=== PATIENT | female | born 1950 | race Caucasian/White ===

== ENCOUNTER → 2019-05-28 16:21 | Outpatient (ROUT) | payer MEDICARE, BC, SELFPAY | PROVIDERS: Visit Provider Nurse Practitioner Family | DX: B37.89 Other sites of candidiasis (principal) | CPT/HCPCS: 87070; 87075; 87077; 87147; 87186; 87205 ==

== ENCOUNTER → 2019-12-07 14:31 | Outpatient (CLI) | payer MEDICARE, BC, SELFPAY ==
[2019-12-07 15:09] LABS: Add Manual Diff / Slide Review NO; Basophils Absolute Auto 0 /uL (0-100); Basophils Percent Auto 0.6 % (0-2); Eosinophils Absolute Auto 200 /uL (0-450); Eosinophils Percent Auto 3.8 % (2-4); Hematocrit 37.9 % (36-46); Hemoglobin 12.9 g/dL (12.0-16.0); Lymphocytes Absolute Auto 1600 /uL (1100-4500); Lymphocytes Percent Auto 25.8 % (25-40); Mean Corpuscular HGB Conc 34.1 % (30-36); Mean Corpuscular Hemoglobin 30.6 PG (26-34); Mean Corpuscular Volume 89.9 fL (80-100); Monocytes Absolute Auto 700 /uL (0-900); Monocytes Percent Auto 10.4 % (3-14); Neutrophils Absolute Auto 3700 /uL (1500-7000); Neutrophils Percent Auto 59.4 % (50-75); Platelet Count 393 X10^3/uL (150-400); Red Blood Cell Count 4.22 X10^6/uL (4.0-5.2); Red Cell Distribution Width 13.7 % (11.6-14.8); White Blood Cell Count 6.3 X10^3/uL (4.5-11.0)
[2019-12-07 15:32] LABS: Alanine Aminotransferase 22 IU/L (<35); Albumin 4.4 g/dL (3.5-5.0); Albumin Globulin Ratio 1.4 (1.0-2.8); Alkaline Phosphatase 106 U/L (38-126); Aspartate Aminotransferase 32 IU/L (14-36); BUN Creatinine Ratio 19.2 (6-22); Bilirubin Total 0.4 mg/dL (0.2-1.3); Blood Urea Nitrogen 25 mg/dL (7-17); Calcium 9.3 mg/dL (8.4-10.2); Carbon Dioxide 32 mmol/L (22-32); Chloride 99 mmol/L (98-107); Estimated Glomerular Filt Rate 40.9 mL/min (>60); Globulin 3.1 g/dL (1.7-4.1); Glucose 102 mg/dL (80-110); HEMOLYSIS < 15 (0-50); Potassium 3.3 mmol/L (3.4-5.1); Sodium 140 mmol/L (137-145); Total Protein 7.5 g/dL (6.3-8.2)
[2019-12-07 15:36] LABS: C-Reactive Protein Quant < 0.5 mg/dL (<1.0); Rheumatoid Factor < 8.6 IU/mL (<12.0)
[2019-12-07 15:51] LABS: Erythrocyte Sedimentation Rate 9 MM/HR (0-20)
[2019-12-07 16:09] LABS: Appearance Urine UA CLEAR; Bilirubin Urine UA NEGATIVE (NEGATIVE); Color Urine UA YELLOW; Glucose Urine UA NEGATIVE (Negative); Ketones Urine UA NEGATIVE (NEGATIVE); Leukocyte Esterase Urine UA NEGATIVE (NEGATIVE); Nitrite Urine UA NEGATIVE (Negative); Occult Blood Urine UA NEGATIVE (Negative); Protein Urine UA NEGATIVE (Negative); Specific Gravity Urine UA 1.015 (1.000-1.035); Urobilinogen Urine UA 0.2 E.U./dL (0.2)
[2019-12-07 16:51] LABS: Bacteria Urine Many (>30); Culture Indicated Urine Specimen Cultured; RBC Urine 0-1/HPF (0-5/HPF); Squamous Epithelial Cell Urine 0-1 /HPF (0-5/HPF); WBC Urine 5-10/HPF (0-5/HPF)
[2019-12-10 16:15] LABS: ANA Screen, IFA POSITIVE (NEGATIVE)
== END ==
PROVIDERS: PCP Internal Medicine; Referring Provider Internal Medicine; Visit Provider Internal Medicine
DX: R21 Rash and other nonspecific skin eruption (principal); M25.40 Effusion, unspecified joint
CPT/HCPCS: 36415; 80053; 81001; 85025; 85651; 86038; 86140; 86430; 87077; 87086; 87186

== ENCOUNTER → 2020-12-16 12:51 | Outpatient (CLI) | payer MEDICARE, BC, SELFPAY ==
[2020-12-16 14:07] LABS: Alanine Aminotransferase 45 IU/L (<35); Albumin 4.2 g/dL (3.5-5.0); Albumin Globulin Ratio 1.3 (1.0-2.8); Alkaline Phosphatase 138 U/L (38-126); Aspartate Aminotransferase 41 IU/L (14-36); BUN Creatinine Ratio 21.2 (6-22); Bilirubin Total 0.3 mg/dL (0.2-1.3); Blood Urea Nitrogen 28 mg/dL (7-17); Calcium 8.8 mg/dL (8.4-10.2); Carbon Dioxide 32 mmol/L (22-32); Chloride 99 mmol/L (98-107); Cholesterol 279 mg/dL (140-199); Globulin 3.2 g/dL (1.7-4.1); Glucose 109 mg/dL (80-110); HDL Cholesterol 66 mg/dL (40-60); HEMOLYSIS < 15 (0-50); LDL Cholesterol Calculated 182 mg/dL (<100); Sodium 137 mmol/L (137-145); Total Protein 7.4 g/dL (6.3-8.2); Triglycerides 154 mg/dL (35-150)
[2020-12-16 20:51] LABS: Hemoglobin A1C% w Est Avg Glu 5.4 % (4.0-6.0)
== END ==
PROVIDERS: PCP Physician Assistant; Referring Provider Physician Assistant; Visit Provider Physician Assistant
DX: E66.3 Overweight (principal)
CPT/HCPCS: 36415; 80053; 80061; 83036

== ENCOUNTER → 2020-12-20 15:57 | Outpatient (CLI) | payer MEDICARE, BC, SELFPAY ==
--- NOTE | 2020-12-20 | DI.US.S_ITS ---
PROCEDURE: US ABDOMEN LIMITED INDICATIONS: Abnormal results of liver function studies TECHNIQUE: Real-time focused scanning was performed of the abdomen, with image documentation. COMPARISON: None. FINDINGS: Liver is diffusely increased in echogenicity. Solitary hyperechoic mass present within the liver adjacent to the nicolasa hepatis measuring 5.7 x 5.7 x 3.8 cm. No gallstones identified. Normal gallbladder wall. No pericholecystic fluid. Negative sonographic Andre sign. No biliary dilatation. Grossly normal appearance of pancreas. IMPRESSION: Probable cavernous hemangioma present given the sonographic appearance; Recommend sequential follow up sonography at 6, 12 and 24 month intervals for surveillance or alternatively, hepatic protocol MRI could be performed. Dictated by: Moses Barrett [facility] Interpreted: Dioni Chandler MD on 12/21/2020 at 9:20 Approved by: Dioin Chandler M.D. on 12/21/2020 at 11:46
== END ==
PROVIDERS: PCP Physician Assistant; Referring Provider Physician Assistant; Visit Provider Physician Assistant
DX: R94.5 Abnormal results of liver function studies (principal)
CPT/HCPCS: 76705

== ENCOUNTER 2024-03-25 08:09 | Day surgery (SDC) | payer MEDICARE, BC, SELFPAY ==
[2024-03-11 08:46] VITALS: BMI 23.4
--- NOTE | 2024-03-24 10:19 | PM.PREOP ---
Pre-operative Note Interval Note History & Physical reviewed/Exam performed by Physician: Yes Changes to H&P: No
[2024-03-25] VITALS (8 sets, daily range): BP systolic 103–144; BP diastolic 52–87; PULSE 57–74; RESP 15–18; TEMP 36.3–36.7; O2SAT 98–100; BMI 23.4
--- NOTE | 2024-03-25 | PATH_ITS ---
[facility] Accession Number: [id number] No. of containers..01 Tissue . 01 Material submitted: . hemorrhoids - ANAL HEMORRHOID . 01 Diagnosis: ANAL HEMORRHOID, BIOPSY: Anal mucosa with dilated and congested submucosal vessels, consistent with hemorrhoidal tissue. No evidence of neoplasia. [facility] 03/30/2024 1007 Local . 01 Electronically signed: . Ekta Caba MD, Pathologist NPI- [id number] . 01 Gross description: . ANAL HEMORRHOID: Received in formalin is 1 fragment of joseph soft tissue measuring 1.3 x 0.7 x 0.5 cm. Tissue is inked. Specimen is sectioned and submitted in account manager sales representative sections in 1 cassette. /LAURO 03/26/2024 1834 Local . 01 Pathologist provided ICD-10: K64.9 . 01 CPT . 196205 Specimen Comment: A courtesy copy of this report has been sent to [phone] Performed at: [address] [facility] [address], [place], [place] [id number] MD Saulo Villarreal MD Phone: [phone]
[2024-03-25] MEDS: LACTATED RINGERS 1,000 ML 21 ML IV (08:52)
[2024-03-25] MEDS: ACETAMINOPHEN 325 MG TABLET 975 MG PO (08:53)
--- NOTE | 2024-03-25 09:34 | SUR.OPER ---
Lithotomy on padded OR bed, head on pillow, arms secured on padded arm boards at <90 degrees abduction. Legs secured in padded yellow fins stirrups.
[2024-03-25] MEDS: BUPIVACAINE 0.25% (PF) VIAL 30 ML INJ (09:42)
[2024-03-25] MEDS: BUPIVACAINE LIPOSOME 266 MG/20 ML VIAL INJ (09:43)
--- NOTE | 2024-03-25 10:12 | P.OP_ITS ---
Operative Date/Time/Diagnoses Date of procedure: 03/25/24 Time of procedure: 10:12 Pre-op diagnosis: Internal hemorrhoids Post-op diagnosis: same Procedure & Clinicians Procedure: Excisional hemorrhoidectomy Same procedure as scheduled: Yes Indications: symptomatic internal hemorrhoid with internal and external component Surgeon: Aldo Zaragoza Supervisor Aircraft Cleaning: Wilfrid Gordon Anesthesia Type: General Operative Notes Findings: Grade 2 internal hemorrhoids with internal and external component Specimen(s): other (hemorrhoid) Estimated Blood Loss (mL): 20 Procedure in detail: The patient was brought to the operating room placed supine on the table. Bilateral lower extremity compression devices were applied. General anesthesia was induced and they were intubated with an endotracheal tube. They were then placed into prone position and appropriately padded. They were then prepped and draped in usual sterile fashion. Time-out was performed. Rectal block was performed by injecting 20 mL of Exparel into the intersphincteric groove. An internal examination of the anal canal was made. The right posterior pedicle freely prolapsed, grade 2 with both internal and external component. No other significant hemorrhoids. Pedicle was grasped elevated and excised with electrocautery off the internal sphincter. The mucosal defect was then closed with a running 3-0 Vicyrl suture. Hemostasis was checked. Specimen was passed off the field. Wound was irrigated with saline. Gelfoam coated in Dibucaine ointment 1% was then placed into the anal canal. Sponge and instrument counts were correct at the end of the procedure. They emerged from anesthesia were extubated and transferred to the postoperative care unit in stable condition. Complications: none Post-operative Condition: stable Disposition: same day surgery
[2024-03-25] MEDS: OXYCODONE IR 5 MG TABLET PO (10:17)
== END 2024-03-25 10:42 | disposition home or self-care (01) ==
PROVIDERS: PCP Nurse Practitioner Family; Referring Provider Surgery; Visit Provider Surgery
PROC: (CPT 46255; principal; 2024-03-25 09:15)
DX: K64.1 Second degree hemorrhoids (principal)
CPT/HCPCS: 46255; C9290; J1100; J1170; J2405; J2704

== ENCOUNTER 2025-05-13 07:37 | Day surgery (SDC) | payer MEDICARE, BC, SELFPAY | END 2025-05-13 07:40 | disposition home or self-care (01) | PROVIDERS: Referring Provider Surgery; Visit Provider Surgery ==

== ENCOUNTER 2025-07-29 13:09 | Day surgery (SDC) | payer MEDICARE, BC, SELFPAY ==
[2025-07-29 13:27] VITALS: BP 160/90; PULSE 75; RESP 15; TEMP 36.2; O2SAT 95
[2025-07-29] MEDS: LACTATED RINGERS 1,000 ML 42 ML IV (13:29)
--- NOTE | 2025-07-29 13:35 | PM.HP.IH.1 ---
History of Present Illness History of Present Illness Date Patient Seen: 07/29/25 Time Patient Seen: 13:35 Chief complaint: SDC Narrative: Angélica is a 75-year-old woman with hemorrhoids. See the office note details. PFSH Medical History Sternum fx Psoriatic arthritis Surgical History Hx of appendectomy History of right knee joint replacement Family History Grandfather Hypertension Heart disease Stroke Social History household members: significant other lives independently: Yes alcohol intake: current substance use type: does not use Meds Home Medications and Allergies Home Medications ?Medication ?Instructions ?Recorded ?Confirmed ?Type ascorbic acid (vitamin C) 1,000 mg 500 mg PO DAILY 03/05/24 01/06/25 History tablet ascorbic acid (vitamin C) [Kylie 1 tab PO DAILY 03/05/24 01/06/25 History Hips-C] furosemide 20 mg tablet 20 mg PO DAILY 03/05/24 01/06/25 History hiauazho-rgr-FT-lycopen-lutein PO 03/05/24 01/06/25 History [Complete MV Adult 50 Plus] omeprazole 20 mg capsule,delayed 20 mg PO DAILY 03/05/24 01/06/25 History release potassium citrate 1 tab PO DAILY 03/05/24 01/06/25 History vitamin B complex 1 tab PO DAILY 03/05/24 01/06/25 History acetaminophen 325 mg capsule 650 mg (2 x 325 mg) PO QID PRN 03/25/24 01/06/25 Rx (Tylenol) pain #60 caps docusate sodium 100 mg capsule 100 mg PO BID #30 caps 03/25/24 01/06/25 Rx (Colace) ibuprofen 200 mg tablet 400 mg (2 x 200 mg) PO Q6H #60 tabs 03/25/24 01/06/25 Rx polyethylene glycol 3350 17 17 g PO DAILY #119 grams 03/25/24 01/06/25 Rx gram/dose oral powder (Miralax) wheat dextrin 3 gram/3.8 gram oral 3 g PO BID #144 grams 03/25/24 01/06/25 Rx powder (Benefiber Sugar Free (dextrin)) sodium,potassium,mag sulfates 17.5 See Rx Instructions PO .COMPLEX 07/26/25 Rx gram-3.13 gram-1.6 gram oral soln #354 mL (Suprep Bowel Prep Kit) Allergies Allergy/AdvReac Type Severity Reaction Status Date / Time No Known Drug Allergies Allergy Verified 01/06/25 14:41 Exam Vital Signs (past 8 hours): - 07/29/25 13:27 Temperature 97.1 F L Pulse Rate 75 Respiratory Rate 15 Blood Pressure 160/90 H Pulse Oximetry 95 Oxygen Delivery Method Room Air Oxygen Delivery Method Room Air Const General: No acute distress Assessment & Plan Assessment and plan (1) Constipation: Qualifiers: Constipation type: unspecified constipation type Qualified Code(s): K59.00 - Constipation, unspecified Status: Acute (2) Internal hemorrhoid: Status: Acute Plan Colonoscopy with rubber-band ligation of internal hemorrhoids Time-Based Coding :: [TOTAL MINUTES] spent with patient and on the chart (including review of chart, obtaining history, exam, reviewing outside data, placing orders, documenting exam and treatment plan, and counseling patient) on [DATE]. PROFEE Tester Operator Helper Document charge(s): No
[2025-07-29 13:47] VITALS: BP 113/56; PULSE 73; RESP 13; TEMP 36.1; O2SAT 96
--- NOTE | 2025-07-29 13:47 | PM.OP.COLON ---
Operative Date/Time/Diagnoses Date of procedure: 07/29/25 Time of procedure: 13:47 Pre-op diagnosis: Colon cancer screening and hemorrhoids Post-op diagnosis: same Procedure & Clinicians Study performed: Colonoscopy (aborted due to inadequate prep) Rubber-band ligation of internal hemorrhoid Same procedure(s) as scheduled: Yes Surgeon: Carlos Alberto Kasper Anesthesia Type: MAC +/- Procedure Notes Procedure in detail: Surgeon: Carlos Alberto Kasper MD Anesthesia: Marian Borjas CRNA Procedure: The patient was brought to the endoscopy suite, placed in left lateral decubitus position. The patient was connected to monitoring devices. A time-out was performed. Sedation was administered. Once the patient was adequately sedated, a digital rectal exam was performed and was normal. The scope was then inserted and advanced into the rectum. There was a large solid stool ball in the sigmoid colon that was impossible. The colonoscopy was aborted. The scope was withdrawn and the mucosa of the rectum was examined. The scope was retroflexed in the rectum and an internal hemorrhoid was noted. The scope was withdrawn and rubber-band ligation was performed of the single internal hemorrhoidal column. Scope withdrawal time: Not applicable Sedation time: 4 minutes EBL: 2 mL Findings: Solid stool ball in the sigmoid colon and internal hemorrhoid Post-procedure Disposition: PACU
[2025-07-29 13:52] VITALS: BP 118/80; PULSE 75; RESP 16; TEMP 36.1; O2SAT 97
[2025-07-29 13:57] VITALS: BP 108/59; PULSE 70; RESP 16; O2SAT 96
[2025-07-29 14:15] VITALS: BP 102/58; PULSE 75; RESP 16; TEMP 36.2; O2SAT 95
== END 2025-07-29 14:15 | disposition home or self-care (01) ==
PROVIDERS: PCP Student in an Organized Health Care Education/Training Program; Referring Provider Surgery; Visit Provider Surgery
PROC: 0DJD8ZZ Inspection of Lower Intestinal Tract, Via Natural or Artificial Opening Endoscopic (ICD-10-PCS; CPT 45378; principal; 2025-07-29 14:00)
DX: Z12.11 Encounter for screening for malignant neoplasm of colon (principal); K64.9 Unspecified hemorrhoids; Z53.09 Procedure and treatment not carried out because of other contraindication
CPT/HCPCS: G0121; J2704

== ENCOUNTER → 2025-08-05 11:57 | Outpatient (CLI) | payer MEDICARE, BC, SELFPAY ==
--- NOTE | 2025-08-05 11:59 | DI.CT.S_ITS ---
PROCEDURE: CT ABDOMEN PELVIS W CON INDICATIONS: Constipation TECHNIQUE: After the administration of intravenous contrast, axial sections acquired from the lung bases to the pubic symphysis. Coronal and sagittal reformats were performed. For radiation dose reduction, the following was used: automated exposure control, adjustment of mA and/or kV according to patient size. COMPARISON: None. FINDINGS: Image quality: Diagnostic. Lower Chest: No significant findings. ABDOMEN: Liver: There is a capsular based fluid containing structure on the posterosuperior aspect of the right lobe measuring 4.5 x 1.5 cm. This has some calcifications posteriorly. There is also a 1.4 cm enhancing lesion in the right hepatic lobe laterally. Gallbladder: No radiopaque gallstones or wall thickening. Biliary ducts: No biliary dilation. Pancreas: No ductal dilation. Spleen: Size is within normal limits. Adrenal Glands: No adrenal nodules. Kidneys and Ureters: No hydronephrosis. No solid mass. No complex renal cystic lesion which requires follow up. Stomach and Bowel: There is large amount of stool seen in the cecum, ascending colon as well as the transverse colon. There is relatively abrupt decompression in the region of the splenic flexure, with collapsed descending colon as well as rectosigmoid. No definite focal lesion seen. The cecum measures 8.8 cm in diameter. Peritoneum: No abnormal intraperitoneal fluid. No free air. Ventral Wall: No significant ventral hernia. Abdominal Nodes: No retroperitoneal or mesenteric adenopathy by size criteria. Vessels: Aorta and inferior vena cava are normal in size. PELVIS: Pelvic Organs: Unremarkable. Bladder: No bladder wall thickening, accounting for underdistention. Pelvic Nodes: No enlarged lymph nodes. Miscellaneous: No inguinal hernias are seen. Bones: No aggressive osseous abnormality. IMPRESSION: 1. Very large amount of stool in the right colon and transverse colon with decompressed descending and rectosigmoid. This suggests the possibility of stricture or occult obstructing lesion in the region of the splenic flexure, however no definite focal lesion seen on this study. This can be better assessed with single-contrast barium enema. 2. Enhancing area in the right hepatic lobe, probably due to vascular lesion or type 1 hemangioma. A complex cystic lesion along the posterior aspect of the right lobe, probably due to prior trauma or infection, can also be further assessed on MRI. Dictated by: Sergey Dyson M.D. on 08/05/2025 at 22:15 Approved by: Sergey Dyson M.D. on 08/05/2025 at 22:22
[2025-08-05 12:42] LABS: Estimated Glomerular Filt Rate 45 mL/min (>60)
== END ==
LOC: CT 11:58
PROVIDERS: PCP Student in an Organized Health Care Education/Training Program; Referring Provider Student in an Organized Health Care Education/Training Program; Visit Provider Surgery
DX: K59.00 Constipation, unspecified (principal)
CPT/HCPCS: 36415; 74177; 82565; Q9967

== ENCOUNTER 2025-09-10 15:32 | Observation (INO) | payer MEDICARE, BC, SELFPAY ==
[2025-09-10] VITALS (16 sets, daily range): BP systolic 95–163; BP diastolic 57–79; PULSE 70–95; RESP 12–92; TEMP 36.3–37.1; O2SAT 91–99; BMI 21.9
--- NOTE | 2025-09-10 | DI.RAD.S_ITS ---
PROCEDURE: XR CHEST 1V INDICATIONS: Possible Aspiration TECHNIQUE: One view of the chest was acquired. COMPARISON: [facility], CT, CT ABDOMEN PELVIS W CON, 08/05/2025, 12:57. FINDINGS: Surgical changes and devices: None. Lungs and pleura: Mild streaky opacity can be seen involving the left lower lobe. No pleural effusions or pneumothorax. Mediastinum: Mediastinal contours appear normal. Heart size is normal. Bones and chest wall: No suspicious bony lesions. Mild dextroconvex scoliotic curvature is seen. Age-appropriate bony degenerative changes are seen. Overlying soft tissues appear unremarkable. IMPRESSION: Mild streaky opacity can be seen involving the left lower lobe. Differential diagnosis includes atelectasis versus early infiltrate. If there is strong clinical concern for developing aspiration pneumonia in this patient, please consider a short term followup examination, as aspiration pneumonia can have a delayed radiographic appearance. Dictated by: Klever Joseph M.D. on 09/10/2025 at 14:24 Approved by: Klever Joseph M.D. on 09/10/2025 at 14:25
[2025-09-10] MEDS: LACTATED RINGERS 1,000 ML 42 ML IV (12:57)
--- NOTE | 2025-09-10 12:59 | P.HP_ITS ---
History of Present Illness History of Present Illness Date Patient Seen: 09/10/25 Time Patient Seen: 12:59 Chief complaint: Colonoscopy Narrative: Angélica had a successful prep and barium enema this morning. The official read is not back yet but it sounds as the barium was able to get all the way to cecum was no evidence obstruction or stricture. See office note more details [facility] Medical History Sternum fx Psoriatic arthritis Surgical History Hx of appendectomy History of right knee joint replacement Family History Grandfather Hypertension Heart disease Stroke Social History household members: significant other lives independently: Yes Smoking Status: Never smoker alcohol intake: current substance use type: does not use Meds Home Medications and Allergies Home Medications ?Medication ?Instructions ?Recorded ?Confirmed ?Type No Known Home Medications 09/10/2508/28 History Allergies Allergy/AdvReac Type Severity Reaction Status Date / Time No Known Drug Allergies Allergy Verified 09/10/25 12:43 Exam Vital Signs (past 8 hours): - 09/10/25 12:55 Temperature 97.3 F L Pulse Rate 74 Respiratory Rate 12 Blood Pressure 117/75 Pulse Oximetry 97 Oxygen Delivery Method Room Air Oxygen Delivery Method Room Air Const General: No acute distress Assessment & Plan Assessment and plan (1) Gastrointestinal tract imaging abnormality: Status: Acute Plan I am happy to hear that the barium enema was a successful procedure. We will attempt to do a colonoscopy but I am not certain that be able to if there is a large volume of barium still in her colon but we will give it a try. Time-Based Coding :: [TOTAL MINUTES] spent with patient and on the chart (including review of chart, obtaining history, exam, reviewing outside data, placing orders, documenting exam and treatment plan, and counseling patient) on [DATE]. PROFEE Hazardous Waste Remover Document charge(s): No
--- NOTE | 2025-09-10 13:36 | PM.OP.COLON ---
Operative Date/Time/Diagnoses Date of procedure: 09/10/25 Time of procedure: 13:39 Pre-op diagnosis: Constipation abnormal imaging of the GI tract Post-op diagnosis: same Procedure & Clinicians Study performed: Colonoscopy Same procedure(s) as scheduled: Yes Anesthesia Type: MAC +/- Procedure Notes Procedure in detail: Surgeon: Carlos Alberto Kasper MD Anesthesia: Zorinsylvai Hill THERMOSTAT REPAIRER Procedure: The patient was brought to the endoscopy suite, placed in left lateral decubitus position. The patient was connected to monitoring devices. A time-out was performed. Sedation was administered. Once the patient was adequately sedated, a digital rectal exam was performed and was normal. The scope was then inserted and advanced to the mid transverse colon. The scope was inserted to about 110 cm. The scope could not be advanced all the way to the cecum due to the residual barium remaining in the proximal colon. No suctioned was used to prevent barium from entering the suction channel. The scope was then slowly withdrawn over greater than 6 minutes. The mucosa was thoroughly inspected. No mucosal abnormalities were found but the visualization was impaired by residual barium. The scope was retroflexed in the rectum. No further abnormalities were seen. The scope was straightened and removed. The patient was awakened and brought to recovery. Sedation time: 20 minutes Findings: No obvious stricture or mucosal abnormality but visualization was impaired by residual barium Estimated Blood Loss: 0 Complications: none Post-procedure Disposition: PACU
[2025-09-10] MEDS: ALBUTEROL 2.5 MG/3 ML NEB (ADULT) INH ×2 (14:07→14:32)
--- NOTE | 2025-09-10 14:22 | SUR.PHASEI ---
1404- pt admitted to PACU with report of possible aspiration. Neb treatment administered as ordered. SAW SHARPENER present - order for Chest x-ray obtained and completed. IS directed, pt able to self perform. Another neb treatment will be administered prior to discharge
--- NOTE | 2025-09-10 15:48 | SUR.PHASEII ---
1510 - charge nurse notified pt to be admitted 1437 - report given to Clyde SORTO room 223
--- NOTE | 2025-09-10 16:10 | PM.HP.1 ---
History of Present Illness History of Present Illness Date Patient Seen: 09/10/25 Time Patient Seen: 16:10 Chief complaint: Colonoscopy Narrative: The patient was a 75-year-old female who underwent colonoscopy today. She had an aspiration event and subsequent coughing and acute hypoxic respiratory failure. She was doing well before the procedure. She had have a barium follow-through and this may have played some role in her abdominal distention leading up to her aspiration. Upon arrival to the floor, she was comfortable on 2 L of oxygen and occasionally coughing up material. She denies any chest pain or abdominal pain. She was accompanied by her . Colonoscopy: Procedure: The patient was brought to the endoscopy suite, placed in left lateral decubitus position. The patient was connected to monitoring devices. A time-out was performed. Sedation was administered. Once the patient was adequately sedated, a digital rectal exam was performed and was normal. The scope was then inserted and advanced to the mid transverse colon. The scope was inserted to about 110 cm. The scope could not be advanced all the way to the cecum due to the residual barium remaining in the proximal colon. No suctioned was used to prevent barium from entering the suction channel. The scope was then slowly withdrawn over greater than 6 minutes. The mucosa was thoroughly inspected. No mucosal abnormalities were found but the visualization was impaired by residual barium. The scope was retroflexed in the rectum. No further abnormalities were seen. The scope was straightened and removed. The patient was awakened and brought to recovery. Sedation time: 20 minutes Findings: No obvious stricture or mucosal abnormality but visualization was impaired by residual barium PFSH Medical History Sternum fx Psoriatic arthritis Surgical History Hx of appendectomy History of right knee joint replacement Family History Grandfather Hypertension Heart disease Stroke Social History household members: significant other lives independently: Yes Smoking Status: Never smoker alcohol intake: current substance use type: does not use Meds Home Medications and Allergies Home Medications ?Medication ?Instructions ?Recorded ?Confirmed ?Type No Known Home Medications 09/10/25 09/10/25 History Allergies Allergy/AdvReac Type Severity Reaction Status Date / Time No Known Drug Allergies Allergy Verified 09/10/25 12:43 Review of Systems Review of Systems Narrative: All else reviewed and otherwise unremarkable except as noted in the history and physical. Exam Vital Signs (past 8 hours): - 09/10/25 12:55 09/10/25 14:00 09/10/25 14:06 Temperature 97.3 F L 98.1 F Pulse Rate 74 71 70 Respiratory Rate 12 19 19 Blood Pressure 117/75 124/57 L 95/57 L Pulse Oximetry 97 93 98 Oxygen Delivery Method Room Air Nasal Cannula Simple Mask Oxygen Flow Rate 4 4 09/10/25 14:10 09/10/25 14:15 09/10/25 14:23 Temperature Pulse Rate 72 73 71 Respiratory Rate 14 16 18 Blood Pressure 148/67 H 138/63 163/65 H Pulse Oximetry 92 94 93 Oxygen Delivery Method Room Air Room Air Room Air Oxygen Flow Rate 09/10/25 14:29 09/10/25 14:33 09/10/25 14:41 Temperature 98.7 F Pulse Rate 72 72 75 Respiratory Rate 24 23 21 Blood Pressure 143/79 H 132/76 132/72 Pulse Oximetry 91 97 99 Oxygen Delivery Method Room Air Room Air Room Air Oxygen Flow Rate Oxygen Delivery Method Room Air Oxygen Flow Rate 4 Narrative Exam Narrative: NAD, alert and oriented, fluent speech, calm. Normocephalic skull, EOMI, anicteric sclera, symmetric pupils. Oropharynx unremarkable, no droop. Neck supple, midline trachea, no adenopathy. Lungs clear, normal rate and effort. Heart regular, no murmur gallop or rub. Abdomen is soft, non distended and non tender. Extremities are free of edema. Skin is free of rash or lesions. Joints are not swollen or deformed. Judgment appears to be normal. Objective Imaging Chest x-ray: My impression: Poor inspiratory effort, no acute infiltrates. There is some haziness of the left costophrenic angle. Assessment & Plan Assessment & Plan narrative: 1. Aspiration during colonoscopy, active. 2. Acute hypoxic respiratory failure secondary to aspiration, active. 3. Colonoscopy today, otherwise uncomplicated. 4. Psoriatic arthritis, stable. PLAN: -oxygen at 2 L, wean as able. -monitor breathing. -hold antibiotics, monitor for fever. Anticipate 1 midnight in the hospital, supports observation status. Full resuscitation. is proxy. Time-Based Coding :: 30 min spent with patient and on the chart (including review of chart, obtaining history, exam, reviewing outside data, placing orders, documenting exam and treatment plan, and counseling patient) on 09/10. Quality VTE Deep Vein Thrombosis/Pulmonary Embolism Present on Admission: No MIPS - Admit I confirm the patient?s Advance Care Plan is present, Code status is documented, Surrogate decision maker is in patient?s record [If Yes, STOP here]: Yes [facility] - Meds 'Current medications' to include all prescriptions, [id number] products, herbals, cannabis/cannabidiol products, and vitamin/mineral/dietary (nutritional) supplements. I have utilized all available resources to obtain, update, or review the patient?s current medications. [If Yes, STOP here]: Yes
--- NOTE | 2025-09-10 17:05 | PC.NURSE ---
Pt arrived from PACU at 1600, VSS on 4L NC, A&Ox4, no c/o pain. c/o slight SOB and new cough. Lung sounds CTA, bowel sounds present, CMS+ throughout bilaterally. Pt oriented to room and call light, bed in low position, call light within reach.
[2025-09-10] MEDS: ACETAMINOPHEN 325 MG TABLET 650 MG PO (19:27)
[2025-09-11 03:00] VITALS: BP 123/66; PULSE 73; RESP 16; TEMP 36.7; O2SAT 96
[2025-09-11 09:24] VITALS: PULSE 73; RESP 16; O2SAT 96
--- NOTE | 2025-09-11 10:23 | PM.DS.IH.1 ---
History of Present Illness History of Present Illness Date Patient Seen: 09/11/25 Time Patient Seen: 10:24 Chief complaint: Colonoscopy Narrative: Patient admitted after difficult colonoscopy yesterday. Discharge Providers Provider Discharge Date: 09/11/25 Primary care physician: Jeff Jordan PA-C Consults: 09/10/25 15:25 Consult to Hospitalist Service Routine Comment: Consulting Provider: Yonny Stoll Reason for consultation: Aspiration with colonoscopy Discharge provider: Dragan Dutta MD Summary Hospital Course Discharge Diagnosis: Change in bowel habits Hospital Course: Patient with h/o difficult colonoscopy, inadequate prep, constipation, change in bowel habits. Had colonoscopy yesterday after barium enema and was able to reach hepatic flexure. Difficult colonoscopy, question of aspiration, admitted for aspiration. Status at Discharge Cognitive/behavioral status at discharge: oriented Functional status at discharge: independent ambulation Overall status at discharge: patient is back to baseline Time Spent with Patient Time spent: Greater than 30 minutes Exam Vital Signs (past 8 hours): - 09/11/25 03:00 09/11/25 08:15 09/11/25 09:24 Temperature 98.0 F Pulse Rate 73 73 Respiratory Rate 16 16 Blood Pressure 123/66 Pulse Oximetry 96 96 Oxygen Delivery Method Room Air Room Air Oxygen Flow Rate 0 Fraction of Inspired Oxygen 21 Fraction of Inspired Oxygen 21 SaO2/FiO2 Ratio 457 Oxygen Delivery Method Room Air Oxygen Flow Rate 0 Narrative Exam Narrative: Const General: healthy appearing, comfortable and no acute distress Orientation: alert and oriented x3 HENMT Ears: hearing grossly normal bilaterally Eyes Visual Bosch: normal visual bosch by confrontation Conjunctivae: conjunctivae normal Sclera: sclerae normal EOM: EOM intact bilaterally Resp Effort & Inspection: normal respiratory effort and able to speak in complete sentences Cardio Rate: regular rate GI Palpation: soft (NT) Extrem General: no pedal edema and no calf tenderness PFSH Medical History Sternum fx Psoriatic arthritis Surgical History Hx of appendectomy History of right knee joint replacement Family History Grandfather Hypertension Heart disease Stroke Social History household members: significant other lives independently: Yes Smoking Status: Never smoker alcohol intake: current substance use type: does not use Discharge Assessment & Plan Assessment and Plan Assessment: H/O constipation, change in bowel habits, difficult colonoscopy Plan of Treatment: Home today F/U Dr. Kasper Discharge Plan Discharge Plan Patient Disposition: Home Provider Discharge Comment: The colonoscopy could not be completed due to residual barium in the colon but there were no obvious abnormalities seen in the portions of your colon that were examined. Nursing Discharge Comment: You may resume your regular diet as tolerated and your home medications as previous. Discharge orders & Medications Discharge Orders: Discharge (Order); Ordered 09/10/25 Ordered By: Carlos Alberto Kasper Prescriptions: No Action No Known Home Medications Follow up/Referrals: Jeff Jordan PA-C [Primary Care Provider, Medical] Diet/Activity/Treatments Diet: Diet as Tolerated Skin/Wound/Dressing Care Report to your healthcare provider any signs of infection, such as:: chills, fever, night sweats and increased pain Visit Report/Discharge Packet Stand Alone Forms: Patient Portal/API Print Language: Syriac Discharge Data Primary Care Provider: Jeff Jordan Attending Provider: Carlos Alberto Kasper VTE Deep Vein Thrombosis/Pulmonary Embolism Present on Admission: No IH PROFEE Charge Codes Discharge inpatient/observation: [id number]
[2025-09-11 11:14] VITALS: BP 142/70; PULSE 69; RESP 16; TEMP 36.6; O2SAT 96
--- NOTE | 2025-09-11 11:49 | CM.DANOTE ---
Patient is a 75 yo female who was admitted on 09/10/25 for Aspiration. Pt has [employer] and [employer] for insurance and her PCP is Dr. Jeff Jordan in [place]. EMR was reviewed. Per MD, pt with planned colonoscopy with Surgeon yesterday and ended up having some aspiration and was admitted overnight for observation and medically stable to d/c home today and no identified barriers to discharge. Per Rn, pt on room air and independent in room and no concerns noted. Due to triage needs, no bedside assessment able to be completed. Pt lives in [facility] and has local supportive friends and family and they can provide transport home today and pt looking forward to being home. No hx of prior admissions to [facility]. ROBBI Sanchez
--- NOTE | 2025-09-11 13:02 | PC.NURSE ---
Pt discharged home at 1148, escorted off floor in wheelchair accompanied by significant other and hospital staff. IV removed, discharge teaching completed including potential need for antibiotics, worsening symptoms and follow up appointments. Patient left the floor with all belongings.
--- NOTE | 2025-09-11 16:43 | P.DS_ITS ---
History of Present Illness History of Present Illness Chief complaint: Colonoscopy Narrative: Per H&P: The patient was a 75-year-old female who underwent colonoscopy today. She had an aspiration event and subsequent coughing and acute hypoxic respiratory failure. She was doing well before the procedure. She had have a barium follow-through and this may have played some role in her abdominal distention leading up to her aspiration. Upon arrival to the floor, she was comfortable on 2 L of oxygen and occasionally coughing up material. She denies any chest pain or abdominal pain. She was accompanied by her . Discharge Providers Provider Discharge Date: 09/11/25 Primary care physician: Jeff Jordan PA-C Consults: 09/10/25 15:25 Consult to Hospitalist Service Routine Comment: Consulting Provider: Yonny Stoll Reason for consultation: Aspiration with colonoscopy Discharge provider: Penelope Hernandez MD Summary Hospital Course Discharge Diagnosis: 1. Aspiration pneumonitis 2. Acute hypoxic respiratory failure, resolved 3. Psoriatic arthritis 4. Chronic immunosuppression 5. Chronic constipation Hospital Course: Patient presented for a colonoscopy after 2 failed prior attempts at colonoscopy. She had a challenging prep and had a barium enema on the morning of September 10. She subsequently underwent a colonoscopy by Dr. Kasper. Following the procedure, she became hypoxic. She required up to 4 L of oxygen. Chest x-ray showed mild streaky opacity in the left lower lobe, felt to be atelectasis versus early infiltrate. It was felt she aspirated during her colonoscopy. Admission for observation was recommended. Overnight, she was successfully weaned off of oxygen. She remained afebrile. She would shortness of breath or chest pain. No cough or sputum production. She was stable without any residual symptoms at the time of discharge. Given her underlying chronic immunosuppression and psoriatic arthritis, she was given a prescription for Augmentin at discharge. She was instructed to fill the prescription and begin taking it should she develop fevers, chills, cough with sputum production, or mild shortness of breath. She was instructed to follow up in the emergency department for any worsening symptoms. She is discharged in stable condition. Time Spent with Patient Time spent: Less than 30 minutes Exam Vital Signs (past 8 hours): - 09/11/25 09:24 09/11/25 11:14 Temperature 97.9 F Pulse Rate 73 69 Respiratory Rate 16 16 Blood Pressure 142/70 H Pulse Oximetry 96 96 Oxygen Delivery Method Room Air Oxygen Flow Rate 0 Fraction of Inspired Oxygen 21 Fraction of Inspired Oxygen 21 SaO2/FiO2 Ratio 457 Oxygen Delivery Method Room Air Oxygen Flow Rate 0 Narrative Exam Narrative: GEN: Very pleasant elderly female, Alert and oriented x 3, NAD HEENT:NC, Face symmetric CHEST: Respiratory excursions symmetric, CTAB CV: RRR, no M/R/G ABD: Soft, NT/ND, BT present in all 4 quadrants, no organomegaly or masses EXTR: warm, well perfused, no C/C/E, she is notable arthritis in the fingers of bilateral hands SKIN: warm and dry, no rash NEURO: Alert and oriented x 3, nonfocal PFSH Medical History Sternum fx Psoriatic arthritis Surgical History Hx of appendectomy History of right knee joint replacement Family History Grandfather Hypertension Heart disease Stroke Social History household members: significant other lives independently: Yes Smoking Status: Never smoker alcohol intake: current substance use type: does not use Discharge Assessment & Plan Assessment and Plan Assessment: H/O constipation, change in bowel habits, difficult colonoscopy Plan of Treatment: Home today F/U Dr. Kasper Discharge Plan Discharge Plan Patient Disposition: Home Provider Discharge Comment: The colonoscopy could not be completed due to residual barium in the colon but there were no obvious abnormalities seen in the portions of your colon that were examined. Initiate antibiotics if you develop: Increased phlegm production or colored phlegm Increase in cough Low-grade fever (100 degrees) Return to the ED: Increased shortness of breath/chest pain. Inability to hold down food/fluids/medications. Fevers/chills. Nursing Discharge Comment: You may resume your regular diet as tolerated and your home medications as previous. Discharge orders & Medications Discharge Orders: Discharge (Order); Ordered 09/11/25 Ordered By: Penelope Hernandez Prescriptions: New amoxicillin-pot clavulanate 875-125 mg tablet 1 tab PO BID Qty: 14 0RF Follow up/Referrals: Jeff Jordan PA-C [Primary Care Provider, Medical] Diet/Activity/Treatments Diet: Diet as Tolerated and Regular Activity: As tolerated Oxygen: N/A Skin/Wound/Dressing Care Report to your healthcare provider any signs of infection, such as:: chills, fever, night sweats and increased pain Visit Report/Discharge Packet Stand Alone Forms: Patient Portal/API, Colonoscopy Result: [facility] Surg Print Language: Surinamese Discharge Data Primary Care Provider: Jeff Jordan Attending Provider: Carlos Alberto Kasper VTE Deep Vein Thrombosis/Pulmonary Embolism Present on Admission: No
== END 2025-09-11 11:50 | disposition home or self-care (01) ==
LOC: AC 15:49 → ENDO 09-13 10:18 → AC 09-13 10:18
PROVIDERS: Admitting Provider Surgery; PCP Student in an Organized Health Care Education/Training Program; Referring Provider Student in an Organized Health Care Education/Training Program; Visit Provider Surgery
PROC: 0DJD8ZZ Inspection of Lower Intestinal Tract, Via Natural or Artificial Opening Endoscopic (ICD-10-PCS; CPT 45378; principal; 2025-09-10 13:00)
DX: J69.0 Pneumonitis due to inhalation of food and vomit (principal); J96.01 Acute respiratory failure with hypoxia; K59.09 Other constipation; R93.3 Abnormal findings on diagnostic imaging of other parts of digestive tract; L40.50 Arthropathic psoriasis, unspecified; D84.9 Immunodeficiency, unspecified
CPT/HCPCS: 45378; 71045; 74270; G0378; J1100; J2405; J2704; J7120; J7613